=== PATIENT | male | born 1960 | race Caucasian/White ===

== ENCOUNTER 2020-09-11 23:16 | Emergency (ER) | payer OTHER, SELFPAY ==
[2020-09-11 23:17] VITALS: BP 140/82; PULSE 87; RESP 18; TEMP 37.1; O2SAT 94; BMI 27.6
[2020-09-11] MEDS: Diphth,Pertuss(Acell),Tet Vac 0.5 ML Vial IM (23:28)
[2020-09-11] MEDS: Lidocaine 1% (20 ml mdv) 20 ML Vial INFILT (23:30)
--- NOTE | 2020-09-11 23:35 | EX.ED.GENINJ ---
HPI History of Present Illness Chief Complaint: Head Injury Informant: patient Narrative Narrative: Patient presents with a scalp laceration. He was swimming in his pool when his head hit the ladder. There was no LOC. He sustained a laceration to the right frontal scalp. His last tetanus was unknown. He was able to control bleeding. He denies any neck pain. He denies any other symptoms. PFSH PFSH Allergy/AdvReac Type Severity Reaction Status Date / Time No Known Allergies Allergy Verified 09/11/20 23:18 ROS ROS ED Constitutional Constitutional ED: Denies chills or fever(s) Eyes Eyes: Denies blurry vision, change in vision or diplopia ENT ENT ED: Denies ear pain, rhinorrhea or sore throat Cardiovascular Cardiovascular: Denies chest pain or palpitations Respiratory/Chest Respiratory/Chest: Denies cough, dyspnea or sputum Gastrointestinal Gastrointestinal: Denies abdominal pain, diarrhea, nausea or vomiting Genitourinary Genitourinary ED: Denies dysuria, hematuria or urinary frequency Musculoskeletal Musculoskeletal: Denies back pain or neck pain Integumentary Reports other Details: Laceration Neurologic Neurologic: Denies headache(s), numbness or weakness Psychiatric Psychiatric: Denies anxiety or depression Endocrine Endocrinology: Denies polydipsia or polyuria EXAM Physical Exam Const Vital Signs: 09/11/20 23:17 09/11/20 23:33 Temperature 98.7 F Temperature Source Oral Pulse Rate 87 Respiratory Rate 18 Respiratory Effort Normal Respiratory Depth Normal Respiratory Pattern Normal Blood Pressure 140/82 H Blood Pressure Mean 101 Pulse Ox 94 Oxygen Delivery Method Room Air Positive well nourished and well developed General Appearance ED: well developed HEENT HEENT Narrative: There is a 3.5 cm laceration to the right frontal scalp. Bleeding controlled Negative for tenderness Eyes PERRL and EOMs intact bilaterally Neck full ROM General: Negative for tenderness Back/Spine normal to inspection Extremity normal to inspection and full ROM Neuro oriented x3 and CN's II-XII intact bilaterally [place] Coma Scale: document GCS findings Spontaneous Obeys Commands Oriented 15 Sensorium / Orientation: alert Psych mental status grossly normal Skin no rashes or lesions noted PROC Procedures Lacerations Frontal scalp: Length: 1.38 in Depth: Skin Shape: Linear Prep: Sterile Conditions Laceration repair: Lidocaine and Local Number of Sutures/[place]: 3 Suture Information: Ethilon and 4-0 MDM MDM MDM Narrative Medical decision making narrative: The patient's tetanus was updated. He had 3 sutures placed. He had these out in 1 week. His neurologic exam is normal. He is on no blood thinning medications. I do not feel he requires any imaging at this time. Discharge Plan Triage Chief Complaint: Head Injury ED Provider: Chuck Gallagher Dx/Rx/DC Orders Clinical Impression: Laceration of scalp Instructions: ED Laceration: All Closures Primary Care Provider: Asif Dsouza Referrals: Asif Dsouza MD [Primary Care Provider] - Disposition Disposition: Home, self care
[2020-09-11 23:43] VITALS: RESP 16
== END 2020-09-11 23:59 | disposition home or self-care (01) ==
LOC: ED 23:48
PROVIDERS: Emergency Provider Emergency Medicine; PCP Family Medicine
DX: S01.01XA Laceration without foreign body of scalp, initial encounter (principal); X58.XXXA Exposure to other specified factors, initial encounter
CPT/HCPCS: 12001; 90471; 90715; 99283

== ENCOUNTER → 2023-07-27 | Outpatient (CLI) | payer OTHER, SELFPAY ==
--- NOTE | 2023-07-27 07:33 | EKG12_ITS ---
Test Reason : PRE-OP Blood Pressure : / mmHG Vent. Rate : 074 BPM Atrial Rate : 074 BPM P-R Int : 148 ms QRS Dur : 086 ms QT Int : 402 ms P-R-T Axes : 063 015 030 degrees QTc Int : 446 ms Normal sinus rhythm Normal ECG Confirmed by CRISTO WARD, RAINA ([id number]), desk editor SRIDEVI MEJIA ([id number]) on 08/02/2023 8:51:47 AM Referred By: Jennifer Gomez Confirmed By:RAINA LEMONS MD
[2023-07-27 08:58] LABS: Hematocrit 43.1 % (40-54); Hemoglobin 14.4 g/dL (13.0-16.5); Mean Corp Hgb Conc 33.4 g/dL (32-36); Mean Corpuscular Hgb 31.1 pg (27.0-32.0); Mean Corpuscular Volume 93.1 fL (80-94); Mean Platelet Vol. 10.5 fl (6.2-12.0); Platelet Count 204 K/mm3 (150-450); RBC Distribution Width CV 12.8 % (11.6-14.6); RBC Distribution Width SD 43.8 fl (35.1-43.9); Red Blood Count 4.63 M/mm3 (4.6-6.2)
[2023-07-27 09:27] LABS: Anion Gap 4 (5-15); BUN 14 mg/dL (7-18); BUN/Creat Ratio 17.9 RATIO (10-20); Calcium,Total 8.5 mg/dL (8.5-10.1); Chloride 108 mmol/L (98-107); Creatinine, Serum 0.78 mg/dL (0.70-1.30); EST Glomerular Filtration Rate 107 mL/min (>60); Est Glom Filt Rate - Afr Amer 130 mL/min (>60); Glucose 94 mg/dL (74-106); Sodium Level 137 mmol/L (136-145)
== END | disposition home or self-care (01) ==
LOC: PSN 07:30
PROVIDERS: PCP Family Medicine; Referring Provider Physician Assistant Surgical; Visit Provider Physician Assistant Surgical
DX: Z01.818 Encounter for other preprocedural examination (principal)
CPT/HCPCS: 36415; 80048; 85027; 93005

== ENCOUNTER 2023-09-13 16:47 | Emergency (ER) | payer OTHER, SELFPAY ==
[2023-09-13 16:48] VITALS: BP 137/69; PULSE 82; RESP 16; TEMP 36.7; O2SAT 97; BMI 28.1
--- NOTE | 2023-09-13 16:58 | EX.ED.DYSGE1 ---
HPI History of Present Illness Chief Complaint: Lower Extremity Injury Informant: patient Narrative Narrative: 6 weeks postop right meniscus repair surgery by Dr. Seaman. Is been having intermittent swelling right lower leg. No pain. No chest pains or shortness of breath. He is on aspirin twice daily for DVT prophylaxis. He saw his orthopedist today. Had plans for outpatient ultrasound however they are unable to schedule for today or tomorrow. Therefore was referred to the ED for testing. No history of DVTs. Prior similar symptoms: No PFSH PFSH Home Medications ?Medication ?Instructions ?Recorded ?Last Taken ?Type NK 09/11/20 Unknown History Allergy/AdvReac Type Severity Reaction Status Date / Time Penicillins (PCN) Allergy Mild Rash Verified 09/13/23 16:50 Social History Smoking Status: Former smoker ROS ROS ED Constitutional Constitutional ED: Denies chills, fever(s) or sweats Eyes Eyes: Denies change in vision ENT ENT ED: Denies dysphagia or sore throat Cardiovascular Cardiovascular: Reports leg edema; Denies chest pain, palpitations or racing heartbeat Respiratory/Chest Respiratory/Chest: Denies cough, dyspnea or dyspnea on exertion Gastrointestinal Gastrointestinal: Denies abdominal pain, diarrhea, nausea or vomiting Genitourinary Genitourinary ED: Denies dysuria, hematuria or urinary frequency Musculoskeletal Musculoskeletal: Denies back pain, extremity pain or neck pain Integumentary Denies rash or wounds Neurologic Neurologic: Denies headache(s), paresthesias or weakness EXAM Physical Exam Const Vital Signs: 09/13/23 16:48 Temperature 98.1 F Temperature Source Temporal Pulse Rate 82 Respiratory Rate 16 Blood Pressure 137/69 H Blood Pressure Mean 91 Pulse Ox 97 Oxygen Delivery Method Room Air Positive well nourished and well developed General Appearance ED: well developed and NAD HEENT Reports moist mucous membranes normocephalic and atraumatic Eyes EOMs intact bilaterally and conjunctivae normal General Eye ED: Yes normal appearance of both eyes Neck no lymphadenopathy and supple General: Negative for tenderness Chest Wall Chest: Negative for tenderness Resp normal respiratory effort and normal air movement Effort and Inspection: symmetric chest movement; Negative for respiratory distress Cardio regular rate, regular rhythm and no murmurs Peripheral Pulses: pulses 2+ throughout GI normal to inspection, nondistended, normoactive bowel sounds and non-tender Palpation: Negative for guarding or rebound tenderness present Back/Spine no CVA tenderness and no thoracic nor lumbar tenderness Extremity Extremity Narrative: Right lower extremity leg brace noted. He had asymmetric swelling right lower extremity compared to left. No calf tenderness. There is slight pitting. Knee laparoscopic incision on pretty much healed there is no erythema no warmth. Skin General Extremety ED: Yes edema; Negative for tenderness General Extremity: edema Neuro oriented x3 and no sensory deficits noted Sensorium / Orientation: awake and alert Skin no rashes or lesions noted and no wounds MDM MDM MDM Narrative Medical decision making narrative: Interventions / MDM: Differential diagnosis: Peripheral edema Diagnosis considered but do not suspect: No clinical septic knee, DVT however ultrasound negative. My EKG interpretation: N/A Imaging independently reviewed and interpreted by myself: Right lower extremity ultrasound: Negative ultrasound discussion with soldering technician. External documents reviewed: N/A Test considered but not ordered:N/A ED course: Patient asymmetric swelling. Distal pulses are intact. Ultrasound ordered for further evaluation. Ultrasound negative. Reassured. Discussed peripheral edema elevation at rest. Discussed continue with mobilization to avoid risk for DVTs. Outpatient follow-up with PCP and his orthopedist. All questions were answered. Re-evaluation: stable Disposition discussed with patient/family/significant other: Patient and significant other Case discussed with consulting clinician: N/A This note was generated with [employer] dictation software. It may contain incorrect words, spelling, and punctuation that were not noted in checking the note before signing. Radiography Diagnostic Testing: Clinical Impression(s) from Imaging Studies Venous Duplex 09/13/23 17:09 IMPRESSION: Normal venous Doppler ultrasound of the lower extremity. Electronically Signed: Rio Olivares MD at 18:43 EDT , Discharge Plan Triage Chief Complaint: Lower Extremity Injury ED Provider: Benjy Bro Dx/Rx/DC Orders Clinical Impression: Edema, peripheral, Right leg swelling Instructions: ED Peripheral Edema, Unilateral Prescriptions: No Action NK Primary Care Provider: Asif Dsouza Referrals: Denny Seaman DO [Med Staff - Active Staff] - Keep Bianca appointment Asif Dsouza MD [Primary Care Provider] - 1-2 Weeks Activity Restrictions/Additional Instructions: Right lower extremity ultrasound negative for DVT. Print Language: Burundian Disposition Disposition: Home, Self Care Discharge Date/Time: 09/13/23 18:37
--- NOTE | 2023-09-13 17:09 | US_ITS ---
STUDY: VENOUS DOPPLER ULTRASOUND - RIGHT LOWER EXTREMITY REASON FOR EXAM: Male, 63 years old. RT LEG SWELLING S/P SURGERY TECHNIQUE: Ultrasound evaluation of the deep vein system to include dean-scale imaging and compression was performed. Dean-scale imaging and Doppler sonographic evaluation, including duplex spectral analysis and qualitative color flow sonography, was performed. COMPARISON: None. FINDINGS: Common Femoral Vein: Normal compression, spontaneity and augmentation. Normal color Doppler. Common Femoral Vein/Greater Saphenous Junction: Normal compression, spontaneity and augmentation. Normal color Doppler. Deep Femoral Vein: Normal compression, spontaneity and augmentation. Normal color Doppler. Femoral Proximal: Normal compression, spontaneity and augmentation. Normal color Doppler. Femoral Middle: Normal compression, spontaneity and augmentation. Normal color Doppler. Femoral Distal: Normal compression, spontaneity and augmentation. Normal color Doppler. Popliteal Vein: Normal compression, spontaneity and augmentation. Normal color Doppler. Posterior Tibial Vein: Normal compression, spontaneity and augmentation. Normal color Doppler. Peroneal Vein: Normal compression, spontaneity and augmentation. Normal color Doppler. There is no demonstrated deep venous thrombosis. US/Venous Duplex Imag/Limited/Uni IMPRESSION: Normal venous Doppler ultrasound of the lower extremity. Electronically Signed: Rio Olivares MD at 18:43 EDT ,
== END 2023-09-13 18:37 | disposition home or self-care (01) ==
PROVIDERS: Emergency Provider Emergency Medicine; PCP Family Medicine; Visit Provider Emergency Medicine
DX: R60.0 Localized edema (principal); Z87.891 Personal history of nicotine dependence; M79.89 Other specified soft tissue disorders
CPT/HCPCS: 93971; 99282

== ENCOUNTER 2024-05-30 16:43 | Emergency (ER) | payer OTHER, SELFPAY ==
[2024-05-30 16:44] VITALS: BP 167/111; PULSE 85; RESP 18; TEMP 36.6; O2SAT 95; BMI 29.8
--- NOTE | 2024-05-30 17:00 | RAD_ITS ---
PROCEDURE: KNEE 4 OR MORE VIEWS REASON FOR EXAM: Pain. TECHNIQUE: 4 views of the left knee COMPARISON: None. FINDINGS: No fracture. No suspicious bone lesion. Normal alignment. No effusion. Soft tissues are unremarkable. RAD/Knee 4 or More Views IMPRESSION: NEGATIVE KNEE SERIES Reading Location: [place] [id number]
--- NOTE | 2024-05-30 18:50 | US_ITS ---
EXAM: BILATERAL LOWER EXTREMITY DOPPLER STUDY CLINICAL HISTORY: . 64-year-old male, severe left posterior knee pain, rule out left leg DVT. COMPARISON: None. TECHNIQUE: Duplex sonography of the bilateral lower extremities with color and spectral Doppler, with and without compression. FINDINGS: The bilateral external iliac, greater saphenous, common femoral, deep femoral, femoral, popliteal, posterior tibial, and peroneal veins are compressed normally and demonstrate color flow with respiratory variation by Doppler. There is no evidence of deep venous thrombosis in the bilateral femoral popliteal system. Small anechoic area within the left posterior knee subcutaneous tissues, likely Ayala's cyst. US/Venous Duplex Imag/Limited/Uni IMPRESSION: No evidence of deep venous thrombosis in the bilateral femoral popliteal system . Probable small left Ayala's cyst. Reading Location: [id number]
--- NOTE | 2024-05-30 22:28 | EDS_ITS ---
HPI History of Present Illness HPI Narrative: Patient presents with left knee pain that began last night. Patient states it is mainly over the posterior aspect of his left knee. Patient denies any trauma or injury. Patient describes the pain as stabbing. Patient states the pain shoots down to his left lower leg. Patient states nothing makes it better and nothing makes it worse. Patient denies any paresthesias or weakness. Patient denies any fevers or chills. Chief Complaint: Lower Extremity Injury Informant: patient Onset/Context/Timing Onset: Yesterday Context: Gradual Onset Timing: Continuous Quality of Pain: Stabbing Location: Posterior left knee Worsened by: Nothing Relieved by: Nothing Associated Symptoms Associated Symptoms: Negative for Parasthesia, Weakness or Loss of Funtion PFSH PFSH Medical History no medical history no medical history Home Medications ?Medication ?Instructions ?Recorded ?Last Taken ?Type hydrocodone-acetaminophen 5-325mg 1 tab PO Q6H PRN PRN Pain 3 days 05/30/24 Unknown Rx 5mg-325mg #10 TABLETS naproxen 500 mg tablet 500 mg PO BID PRN #20 tabs 0 05/30/24 Unknown Rx Allergy/AdvReac Type Severity Reaction Status Date / Time Penicillins (PCN) Allergy Mild Rash Verified 05/30/24 16:44 Surgical History (Updated 05/30/24 @ 22:[address] Robbie Rivas DO) Hx of arthroscopy of right knee Social History (Updated 05/30/24 @ 22:[address] Robbie Rivas DO) Smoking Status: Former smoker Electronic Cigarette Use: with nicotine alcohol intake: current Alcohol type: beer ROS ROS ED Constitutional Constitutional ED: Denies chills or fever(s) Eyes Eyes: Denies blurry vision or change in vision ENT ENT ED: Denies rhinorrhea or sore throat Cardiovascular Cardiovascular: Denies chest pain or palpitations Respiratory/Chest Respiratory/Chest: Denies cough or dyspnea Gastrointestinal Gastrointestinal: Denies nausea or vomiting Genitourinary Genitourinary ED: Denies dysuria or hematuria Musculoskeletal Musculoskeletal: Denies back pain or neck pain Integumentary Denies abscess or rash Neurologic Neurologic: Denies headache(s) or weakness Allergic/Immunologic Allergic/Immunologic ED: Denies mouth swelling or urticaria EXAM Physical Exam Const Vital Signs: 05/30/24 16:44 Temperature 97.8 F Temperature Source Oral Pulse Rate 85 Respiratory Rate 18 Blood Pressure 167/111 H Blood Pressure Mean 129 Pulse Ox 95 Oxygen Delivery Method Room Air Positive well nourished and well developed General Appearance ED: well developed and NAD HEENT Reports moist mucous membranes Neck full ROM and supple Extremity Extremity Narrative: There is tenderness over the posterior aspect of the left knee. There is no joint effusion noted. Range of motion was slightly limited in flexion of the left knee secondary to pain. There is no erythema or warmth noted. There is no deformity noted. There is no calf tenderness noted. Sensation is intact to light touch bilaterally in the lower extremities. Strength is 5/5 bilaterally in the lower extremities. Neuro oriented x3, CN's II-XII intact bilaterally, moves all extremities and no sens ory deficits noted Sensorium / Orientation: alert Motor Exam: strength 5/5 throughout Psych mental status grossly normal MDM MDM MDM Narrative Medical decision making narrative: Differential diagnosis includes DVT, osteoarthritis, and occult fracture. X- rays of the left knee will be obtained to assess for occult fracture. Venous duplex of the left lower extremity will be obtained to assess for DVT. Radiography Diagnostic Testing: Clinical Impression(s) from Imaging Studies Knee X-Ray 05/30/24 17:00 IMPRESSION: NEGATIVE KNEE SERIES Reading Location: [id number] Venous Duplex 05/30/24 18:50 IMPRESSION: No evidence of deep venous thrombosis in the bilateral femoral popliteal system. Probable small left Ayala's cyst. Reading Location: [facility] Venous duplex of the left lower extremity was obtained. There is no evidence of DVT. There is a probable small left Ayala's cyst. X-rays of the left knee were obtained. There are 4 views. On my independent interpretation, there is no acute fracture. There is no joint effusion noted. There is no loose body. Radiologist also interpreted the x-rays and agrees. Treatment and Re-Evaluation Narrative: Patient was advised of his findings. Patient was advised that the Ayala's cyst could be a result of an inflammatory process in his knee. Patient was instructed to ice and elevate his left knee. Patient was given a prescription for Naprosyn and a prescription for a short course of [place]greg[place]. Patient was instructed to follow-up with his primary care physician or orthopedic surgeon in 5 to 7 days. Patient was instructed to return if worse in any way. Patient understood and was agreeable with the plan. All questions were answered. Discharge Plan Triage Chief Complaint: Lower Extremity Injury ED Provider: Robbie Rivas Dx/Rx/DC Orders Clinical Impression: Synovial cyst of popliteal space [Ayala], left knee, Arthralgia of left knee Instructions: ED Ayala's Cyst, ED Knee Pain of Uncertain Cause Prescriptions: New hydrocodone-acetaminophen 5-325 mg tablet 1 tab PO Q6H PRN PRN (Reason: Pain) 3 Days Qty: 10 0RF naproxen 500 mg tablet 500 mg PO BID PRN Qty: 20 0RF Primary Care Provider: Asif Dsouza Referrals: Asif Dsouza MD [Primary Care Provider] - 5-7 Days Print Language: Nauruan Disposition Disposition: Home, Self Care
[2024-05-30 22:40] VITALS: BP 134/112; PULSE 83; RESP 16; TEMP 36.6; O2SAT 99
[2024-05-30] MEDS: HYDROcodone Bitartrate/Apap 5/325 Tablet PO (22:47)
== END 2024-05-30 22:49 | disposition home or self-care (01) ==
PROVIDERS: Emergency Provider Emergency Medicine; PCP Family Medicine; Visit Provider Emergency Medicine
DX: M71.22 Synovial cyst of popliteal space [Baker], left knee (principal); Z87.891 Personal history of nicotine dependence
CPT/HCPCS: 73564; 93971; 99282

== ENCOUNTER → 2024-07-24 | Outpatient (CLI) | payer OTHER, SELFPAY ==
[2024-07-24 17:11] LABS: Absolute Lymphocyte Count 1.23 X10^3/uL (0.83-4.51); Absolute Neutrophil Count 5.6 X10^3/uL (2.0-7.7); Basophil# 0.03 X10^3/uL; Basophil% 0.4 % (0-1); Eosinophil# 0.14 X10^3/uL; Eosinophils% 1.8 % (0-5); Hematocrit 41.4 % (40-54); Hemoglobin 14.2 g/dL (13.0-16.5); Lymphocyte # 1.23 X10^3/ul (0.83-4.51); Mean Corp Hgb Conc 34.3 g/dL (32-36); Mean Corpuscular Hgb 31.3 pg (27.0-32.0); Mean Corpuscular Volume 91.4 fL (80-94); Mean Platelet Vol. 10.9 fl (6.2-12.0); Monocyte# 0.66 X10^3/uL; Monocyte% 8.6 % (0-10); NRBC Flagged by Analyzer 0 % (0-5); Neutrophil # 5.63 X10^3/uL (2.7-7.7); Neutrophil % 73.1 % (47-70); Platelet Count 211 K/mm3 (150-450); RBC Distribution Width CV 13.1 % (11.6-14.6); RBC Distribution Width SD 43.7 fl (35.1-43.9); Red Blood Count 4.53 M/mm3 (4.6-6.2); White Blood Count 7.7 K/mm3 (4.4-11.0)
[2024-07-24 18:06] LABS: Anion Gap 10 (5-15); BUN 15 mg/dL (4-19); Carbon Dioxide 22.5 mmol/L (21.0-32.0); Chloride 104 mmol/L (98-108); EST Glomerular Filtration Rate 100 (>60); Glucose 80 mg/dL (70-99); Potassium 4.5 mmol/L (3.3-5.1); Sodium Level 137 mmol/L (133-145)
== END | disposition home or self-care (01) ==
LOC: LAB 15:38
PROVIDERS: PCP Family Medicine; Referring Provider Physician Assistant Surgical; Visit Provider Physician Assistant Surgical
DX: Z01.818 Encounter for other preprocedural examination (principal)
CPT/HCPCS: 36415; 80048; 85025